=== PATIENT | female | born 1940 | race Two or more races ===

== ENCOUNTER 2016-11-13 00:37 | Inpatient (IN) | payer MEDICARE, OTHER ==
[~2016-11-13] VITALS: Ht 162.6 cm; Wt 53.5 kg
--- NOTE | 2016-11-13 01:00 | NUR ---
Patient walked into ER c/o abdominal pain x1 week. Patient was seen at [facility] ER for similar symptoms x2 this month. Here for symptoms not resolving
[2016-11-13] MEDS ORDERED: PARO20TA51 PO (01:06)
[2016-11-13] MEDS ORDERED: ASPI81TA31 PO (01:13)
[2016-11-13] MEDS ORDERED: CARV6.252 PO (01:13)
[2016-11-13] MEDS ORDERED: [UNRECOGNIZED DRUG - CODE] PO (01:15)
[2016-11-13] MEDS ORDERED: CHOL200016 PO (01:17)
[2016-11-13] MEDS ORDERED: IV NORMAL SALINE 1000 ML BAG IV ONE (01:45)
[2016-11-13 01:50] LABS: *BILIRUBIN,URIN NEGATIVE (NEGATIVE); *BLOOD, URINE 2+ (NEGATIVE); *CLARITY,URINE SLIGHTLY CLOUDY (CLEAR); *COLOR,URINE YELLOW (YELLOW); *KETONES,URINE NEGATIVE (NEGATIVE); *PROTEIN,URINE NEGATIVE (NEGATIVE); *UROBILINOGEN,URINE 0.2 E.U./dl (NORMAL); LEUKOCYTE ESTERASE ,URINE TRACE (NEGATIVE); NITRITE, URINE NEGATIVE (NEGATIVE); PH,URINE 5.5 (5.0-8.0); UGLUCOSE NEGATIVE (NEGATIVE)
[2016-11-13] MEDS ORDERED: BIOT5000 PO (01:56)
[2016-11-13 01:57] LABS: BASOPHILS % (AUTO) 0.6 % (0.0-2.0); EOSINOPHILS # (AUTO) 0.1 K/uL (0.0-0.7); EOSINOPHILS % (AUTO) 2.8 % (0.0-7.0); HEMATOCRIT 37.6 % (37-47); HEMOGLOBIN 12.7 G/DL (12.0-16.0); LYMPHOCYTES % (AUTO) 23.8 % (20.5-51.5); MEAN CORPUSCULAR HEMOGLOBIN 33.4 UUG (27.0-31.0); MEAN CORPUSCULAR HGB CONC 34 g/dL (32.0-37.0); MEAN CORPUSCULAR VOLUME 98.8 FL (81.0-99.0); MONOCYTES # (AUTO) 0.3 K/UL (0.1-1.30); MONOCYTES % (AUTO) 7.3 % (0.0-11.0); NEUTROPHILS % (AUTO) 65.5 % (38.5-71.5); PLATELET COUNT (AUTO) 153 K/UL (150-450); RED CELL DISTRIBUTION WIDTH 12.3 % (11.5-14.5); WHITE BLOOD COUNT (AUTO) 4.4 K/UL (4.0-11.2)
[2016-11-13 01:58] LABS: BACTERIA,URINE FEW /HPF (NONE SEEN); RBC,URINE 0-3 /HPF (0-3); SQUAMOUS EPITHELIAL CELL,UR FEW /HPF (NONE SEEN); URIC ACID CRYSTALS,URINE FEW /HPF (NONE SEEN)
[2016-11-13] MEDS ORDERED: ONDANSETRON IV *ER 4 MG/2 ML VIAL IV ONE (02:00)
[2016-11-13] MEDS ORDERED: MORPHINE SULFATE 4 MG/1 ML DISP.SYRIN IV ONE (02:00)
[2016-11-13] MEDS ORDERED: FERR-58 PO (02:04)
[2016-11-13] MEDS ORDERED: FERR325T6 PO (02:04)
[2016-11-13 02:06] LABS: ALBUMIN 3.6 g/dL (3.4-5.0); BILIRUBIN,TOTAL 0.5 mg/dL (0.2-1.0); CALCIUM 8.8 mg/dL (8.5-10.1); CREATININE 0.8 mg/dL (0.6-1.3); POTASSIUM 4.1 mmol/L (3.5-5.1); TOTAL PROTEIN, SERUM 7.3 g/dL (6.4-8.2)
[2016-11-13 02:09] LABS: BILIRUBIN,DIRECT 0.1 mg/dL (0.0-0.2)
[2016-11-13] MEDS ORDERED: MORPHINE SULFATE 4 MG/1 ML DISP.SYRIN ONE (02:10)
[2016-11-13] MEDS ORDERED: ONDANSETRON 4 MG/2 ML VIAL ONE (02:10)
--- NOTE | 2016-11-13 04:05 | NUR ---
Received patient from ER via [facility]. Patient is alert, oriented x 4, ambulatory, in no acute distress. Dx: Abdominal Pain. New admission information done, belonging list done and care plan initiated, notified MD for admission orders. Call light within reach, bed in low position. Will continue to monitor.
--- NOTE | 2016-11-13 04:05 | NUR ---
Transfered to 2nd floor Med Surg
[2016-11-13 04:15] VITALS: BP 141/76
[2016-11-13] MEDS ORDERED: HYDROCODONE/APAP 10-325 MG TABLET PO PRN (05:30)
[2016-11-13] MEDS ORDERED: ZOLPIDEM 5 MG TABLET PO PRN (05:30)
[2016-11-13] MEDS ORDERED: ENOXAPARIN SODIUM 40 MG/0.4 ML DISP.SYRIN SQ SCH (05:30)
[2016-11-13] MEDS ORDERED: ONDANSETRON 4 MG/2 ML VIAL IV PRN (05:30)
[2016-11-13] MEDS ORDERED: MAGNESIUM HYDROXIDE 30 ML LIQUID UDC PO PRN (05:30)
[2016-11-13] MEDS ORDERED: MORPHINE SULFATE 2 MG/1 ML DISP.SYRIN IV PRN (05:30)
[2016-11-13] MEDS ORDERED: ACETAMINOPHEN 325 MG TABLET PO PRN (05:30)
[2016-11-13] MEDS ORDERED: Z GUARD REMEDY PASTE 57 GM TUBE TOP PRN (05:30)
[2016-11-13] MEDS: IV NS 1000 ML 1,000 ML IV PRN ×2 (05:53→19:12)
[2016-11-13] MEDS: PANTOPRAZOLE SODIUM 40 MG TABLET.DR PO SCH (07:00)
--- NOTE | 2016-11-13 07:10 | NUR ---
PATIENT RECEIVED IN ROOM RESTING ALERT, AWAKE AND ORIENTED IN NO ACUTE DISTRESS. STATED ABD PAIN IS TOLERABLE AT THIS TIME. RESPIRATIONS EVEN AND UNLABORED. IVF RUNNING. FALL PRECAUTIONS IN PLACE.
[2016-11-13] MEDS: ASPIRIN 81 MG TAB.CHEW PO SCH (08:24)
[2016-11-13] MEDS: PAROXETINE HCL 20 MG TABLET PO SCH (08:25)
[2016-11-13] MEDS: CARVEDILOL 6.25 MG TABLET PO SCH ×2 (08:28→17:41)
[2016-11-13] MEDS: HYDROCODONE/APAP 5-325MG TABLET PO PRN ×2 (08:45→22:26)
--- NOTE | 2016-11-13 10:56 | NUR ---
PATIENT PARTICIPATED WITH PT. PATIENT C/O DIZZINESS WHEN OUT OF BED, UPON ASSESSMENT PATIENT'S BP NOTICED TO BE LOW WHEN UP. TEACHING DONE TO CALL FOR ASSISTANCE WHEN OUT OF BED AND PATIENT VOICED UNDERSTANDING. DR. ESPINOZA NOTIFIED.
[2016-11-13 11:00] VITALS: BP_SYST 119; BP_SYST 75; BP_SYST 98; BP_DIAS 47; BP_DIAS 48; BP_DIAS 54
[2016-11-13 11:06] VITALS: BP 117/61
[2016-11-13] MEDS: FERROUS SULFATE 325 MG TABEC PO SCH (12:16)
[2016-11-13] MEDS ORDERED: SULF1TAB48 PO (12:18)
[2016-11-13 15:21] VITALS: BP 106/62
[2016-11-13 15:35] LABS: *SODIUM RNDM,URINE 67 mmol/L (40-220)
--- NOTE | 2016-11-13 18:12 | NUR ---
END OF SHIFT NOTES. PT IS A/OX3. NO ACUTE DISTRESS THROUGHOUT SHIFT. PT STATES NO ABDOMINAL PAIN AT THIS TIME. V/S STABLE. MILK MAGNESIA GIVEN. PT STATES HAD A SMALL BOWEL MOVEMENT. IV FLUIDS RUNNING NS @75ML/HR. BRP. NEEDS MET BY STAFF.
[2016-11-13 19:00] VITALS: BP 128/60
--- NOTE | 2016-11-13 19:15 | NUR ---
ALERT ORIENTED, ABLE TO MAKE NEEDS KNOWN, NO SOB NO CHEST PAIN NOTED, PATIENT HAS BOWEL MOVEMENT 2X, CONT TO MONITOR.
[2016-11-13] MEDS: SULFAMETH/TRIMETH 800/160 MG TABLET PO SCH (21:15)
[2016-11-13] MEDS ORDERED: MIRALAX 17 GM POWD.PACK PO ONE (21:15)
[2016-11-13] MEDS ORDERED: MIRALAX 17 GM POWD.PACK ONE (22:26)
[2016-11-13] MEDS ORDERED: SULFAMETH/TRIMETH 800/160 MG TABLET ONE (22:27)
[2016-11-14 05:00] VITALS: BP 140/78
--- NOTE | 2016-11-14 05:20 | NUR ---
PATIENT SLEPT MOST OF THE NIGHT, NO SOB NO CHEST PAIN NOTED, NO BM YET, CONT TO MONITOR.
[2016-11-14] MEDS: PANTOPRAZOLE SODIUM 40 MG TABLET.DR PO SCH (05:58)
[2016-11-14 06:52] LABS: MAGNESIUM 2.1 mg/dL (1.8-2.4); PHOSPHOROUS 3.3 mg/dL (2.5-4.9); POTASSIUM 3.7 mmol/L (3.5-5.1); URIC ACID 4.2 mg/dL (2.6-6.0)
[2016-11-14 06:56] LABS: THYROID STIMULATING HORMONE 1.756 mIU/mL (0.358-3.740)
[2016-11-14 06:58] LABS: BASOPHILS % (AUTO) 0.6 % (0.0-2.0); EOSINOPHILS # (AUTO) 0.2 K/uL (0.0-0.7); EOSINOPHILS % (AUTO) 5.7 % (0.0-7.0); HEMATOCRIT 34.2 % (37-47); HEMOGLOBIN 11.9 G/DL (12.0-16.0); LYMPHOCYTES # (AUTO) 0.9 K/UL (0.8-4.8); LYMPHOCYTES % (AUTO) 30.2 % (20.5-51.5); MEAN CORPUSCULAR HEMOGLOBIN 34.8 UUG (27.0-31.0); MEAN CORPUSCULAR HGB CONC 35 g/dL (32.0-37.0); MONOCYTES # (AUTO) 0.3 K/UL (0.1-1.30); MONOCYTES % (AUTO) 9.3 % (0.0-11.0); NEUTROPHILS # (AUTO) 1.7 K/UL (1.8-8.9); NEUTROPHILS % (AUTO) 54.2 % (38.5-71.5); PLATELET COUNT (AUTO) 153 K/UL (150-450); RED BLOOD CELL COUNT(AUTO) 3.42 MIL/UL (4.2-5.4); RED CELL DISTRIBUTION WIDTH 12.3 % (11.5-14.5); WHITE BLOOD COUNT (AUTO) 3.1 K/UL (4.0-11.2)
[2016-11-14 07:04] LABS: CALCIUM 8.3 mg/dL (8.5-10.1); CREATININE 0.9 mg/dL (0.6-1.3)
[2016-11-14] MEDS: IV NS 1000 ML 1,000 ML IV PRN ×2 (08:02→21:35)
[2016-11-14] MEDS: ASPIRIN 81 MG TAB.CHEW PO SCH (08:03)
[2016-11-14] MEDS: PAROXETINE HCL 20 MG TABLET PO SCH (08:04)
[2016-11-14] MEDS: CARVEDILOL 6.25 MG TABLET PO SCH ×2 (08:06→17:11)
[2016-11-14] MEDS: ENOXAPARIN SODIUM 40 MG/0.4 ML DISP.SYRIN SQ SCH (08:08)
--- NOTE | 2016-11-14 08:58 | NUR ---
PT AWAKE IN BED, PAIN 3/10 IN ABDOMEN RADIATING TO BACK. NO SOB ALL SAFETY AND COMFORT MEASURES ATTENDED TO, CALL LIGHT IN REACH
[2016-11-14] MEDS: SULFAMETH/TRIMETH 800/160 MG TABLET PO SCH ×2 (09:23→21:23)
[2016-11-14] MEDS: HYDROCODONE/APAP 5-325MG TABLET PO PRN ×2 (09:29→21:35)
[2016-11-14] MEDS ORDERED: MAGNESIUM HYDROXIDE 30 ML LIQUID UDC PO PRN (10:00)
[2016-11-14] MEDS ORDERED: POTASSIUM CHLORIDE 20 MEQ TAB.PRT.SR PO ONE (10:15)
--- NOTE | 2016-11-14 10:30 | NUR ---
PT WALKING WITH PT, NO EPISODE OF ORTHOSTATIC HYPOTENSION
[2016-11-14] MEDS: FERROUS SULFATE 325 MG TABEC PO SCH (10:36)
[2016-11-14 11:46] VITALS: BP 112/56
[2016-11-14 15:46] VITALS: BP 131/71
[2016-11-14 20:00] VITALS: BP 115/59
--- NOTE | 2016-11-14 20:00 | NUR ---
PT IN BED AWAKE AND ORIENTED, WATCHING TV, NO ACUTE DISTRESS NOTED. NO C/O PAIN AT THIS TIME. IV INTACT AND PATENT, IVF INFUSING ORDERED. NO S/S OF RESPIRATORY DISTRESS OBSERVED/REPORTED, PT ON ROOM AIR. CALL LIGHT WITHIN REACH. SAFETY MEASURES IN PLACE.
[2016-11-14] MEDS: ATORVASTATIN 10 MG TABLET PO SCH (21:23)
--- NOTE | 2016-11-14 21:35 | NUR ---
PT C/O OF ABDOMINAL PAIN 4/10 AND CONSTIPATION, REQUESTING MED, PRN NORCO 5/325MG AND MILK OF MAG GIVEN PRESCRIBED. WILL REASSESS. WILL CONTINUE TO MONITOR.
[2016-11-15 04:00] VITALS: BP 119/61
[2016-11-15] MEDS: PANTOPRAZOLE SODIUM 40 MG TABLET.DR PO SCH (06:16)
--- NOTE | 2016-11-15 06:21 | NUR ---
END OF SHIFT NOTE: PT IN BED RESTING, IN NO APPARENT DISTRESS. SLEPT WELL PER SHIFT. REPORTS ABDOMINAL PAIN OF 3/10 AT THIS TIME, TOLERABLE PER PT'S REPORT, NO PAIN MED REQUESTED AT THIS TIME. PT WITH SMALL BM, MED EFFECTIVE. BRP. CONTINUES ON IVF, TOLERATING WELL. VS STABLE. ALL NEEDS MET. CALL LIGHT IN REACH SAFETY MAINTAINED. CONTINUE CARE PLANNED.
[2016-11-15] MEDS: PAROXETINE HCL 20 MG TABLET PO SCH (08:10)
[2016-11-15] MEDS: ASPIRIN 81 MG TAB.CHEW PO SCH (08:10)
[2016-11-15] MEDS: CARVEDILOL 6.25 MG TABLET PO SCH ×2 (08:10→17:18)
[2016-11-15] MEDS: SULFAMETH/TRIMETH 800/160 MG TABLET PO SCH ×2 (08:10→20:13)
[2016-11-15] MEDS: ENOXAPARIN SODIUM 40 MG/0.4 ML DISP.SYRIN SQ SCH (08:11)
--- NOTE | 2016-11-15 08:50 | NUR ---
PT AWAKE, SITTING IN CHAIR, 3/10 PAIN IN ABDOMEN, DOES NOT WANT PAIN MEDICATIONS AT THIS TIME, STATES IT IS TOLERABLE. PT ABLE TO WALK TO AND FROM BATHROOM WITH NO DIZZINESS, PT REFUSED LOVENOX AND EXPLAINED TO PT THAT IT IS VERY IMPORTANT TO WALK THE HALLWAYS TODAY. RN WILL ASSIST. IV INTACT AND PATENT, ALL SAFETY AND COMFORT MEASURES ATTENDED TO, CALL LIGHT IN REACH, WILL CONTINUE TO MONITOR
[2016-11-15] MEDS: FERROUS SULFATE 325 MG TABEC PO SCH (10:43)
[2016-11-15] MEDS: IV NS 1000 ML 1,000 ML IV PRN ×2 (10:44→22:53)
[2016-11-15 11:11] VITALS: BP 132/62
--- NOTE | 2016-11-15 14:40 | NUR ---
PT STATING PAIN 6/10 IN ABDOMEN BUT DOES NOT WANT NORCO AT THIS TIME, OFFERED PT TO TRY TYLENOL AND IF PAIN DOES NOT SUBSIDE TO TRY NORCO, PT AGREED. OFFERED WARM PACK WELL. WILL CONTINUE TO MONITOR
[2016-11-15 15:29] VITALS: BP 127/57
--- NOTE | 2016-11-15 16:16 | NUR ---
The patient's discharge plan is to go to [facility] [ ; [id number] [place] [address]] once medically cleared. She is aware and in agreement with the plan. Her son-in-law, Pawel [ ], is in agreement with her discharge as well.
[2016-11-15 20:00] VITALS: BP 129/73
[2016-11-15] MEDS: ATORVASTATIN 10 MG TABLET PO SCH (20:13)
[2016-11-15] MEDS: HYDROCODONE/APAP 5-325MG TABLET PO PRN (21:16)
[2016-11-16 05:00] VITALS: BP 136/78
[2016-11-16] MEDS: PANTOPRAZOLE SODIUM 40 MG TABLET.DR PO SCH (06:13)
--- NOTE | 2016-11-16 06:41 | NUR ---
PT IN BED RESTING, SLEPT INTERMITTENTLY DURING SHIFT, WAS GIVEN NORCO 5/325MG FOR C/O HEADACHE AND ABDOMINAL PAIN 01/13, AND WITH RELIEF. PT IS AMBULATORY TO THE BATHROOM. IVF STILL INFUSING. CALL LIGHT WITHIN REACH.
--- NOTE | 2016-11-16 07:51 | NUR ---
RECEIVED PATIENT IN BED AWAKE ALERT AND ORIENTED SHE STATED THAT HER RIGHT LOWER QUADRANT PAIN IS STILL PRESENT BUT REFUSES TO TAKE PAIN MEDICATION AT THIS TIME.REMAIN ON IVF ORDERED WITH NO S/S OF INFILTERATION ON SITE.MADE COMFORTABLE AND WILL OBSERVE.
[2016-11-16] MEDS: SULFAMETH/TRIMETH 800/160 MG TABLET PO SCH (08:11)
[2016-11-16] MEDS: CARVEDILOL 6.25 MG TABLET PO SCH (08:11)
[2016-11-16] MEDS: ASPIRIN 81 MG TAB.CHEW PO SCH (08:11)
[2016-11-16] MEDS: PAROXETINE HCL 20 MG TABLET PO SCH (08:11)
[2016-11-16] MEDS: ENOXAPARIN SODIUM 40 MG/0.4 ML DISP.SYRIN SQ SCH (08:15)
[2016-11-16] MEDS ORDERED: ATOR10TA PO (10:43)
[2016-11-16] MEDS ORDERED: FERR325T28 PO (10:43)
[2016-11-16] MEDS ORDERED: PANT40TA2 PO (10:43)
[2016-11-16] MEDS ORDERED: Acetaminophen PO (10:43)
[2016-11-16] MEDS ORDERED: MULT-1045 PO (10:43)
[2016-11-16] MEDS ORDERED: HYDR-3326 PO (10:43)
[2016-11-16] MEDS ORDERED: ACID1TAB4 PO (10:43)
[2016-11-16] MEDS ORDERED: SULF1TAB3 PO (10:43)
[2016-11-16] MEDS ORDERED: Zolpidem Tartrate PO (10:43)
[2016-11-16] MEDS ORDERED: MAGN400O4 PO (10:43)
--- NOTE | 2016-11-16 10:57 | NUR ---
NEW ORDER RECEIVED TO DISCHARGE PATIENT TO [facility] TODAY.[facility] WAS CALLED BY THE FUNCTIONAL MANAGER AND THEY STATED WILL CONFIRM WITH THE DIRECTOR OF NURSES IF THEY WILL ACCEPT PATIENT AND WILL CALL US BACK.
[2016-11-16] MEDS: FERROUS SULFATE 325 MG TABEC PO SCH (11:04)
[2016-11-16 11:34] VITALS: BP 140/86
--- NOTE | 2016-11-16 12:05 | NUR ---
CALLED [facility] AGAIN AND REPORT GIVEN TO LATISHA ARANGO FOR CONTINUED CARE.CALLED [facility] AND PATIENT WILL BE PICKED UP ABOUT 1245 PATIENT AWARE AND SIGNED HER DISCHARGE INSTRUCTIONS.HEPLOCK REMOVED AT THIS TIME.
--- NOTE | 2016-11-16 13:30 | NUR ---
PATIENT DISCHARGED PICKED UP BY [facility] IN SATISFACTORY CONDITION WITH DISCHARGE INSTRUCTIONS WITH ALL HER PERSONAL BELONGINGS.
== END 2016-11-16 13:30 | DRG 394 ==
LOC: ER 00:50 → MED 03:48
DX: K66.0 Peritoneal adhesions (postprocedural) (postinfection) (principal); E22.2 Syndrome of inappropriate secretion of antidiuretic hormone; N39.0 Urinary tract infection, site not specified; K56.41 Fecal impaction; E78.5 Hyperlipidemia, unspecified; D50.9 Iron deficiency anemia, unspecified; E53.8 Deficiency of other specified B group vitamins; I48.91 Unspecified atrial fibrillation; Z79.899 Other long term (current) drug therapy; Z85.118 Personal history of other malignant neoplasm of bronchus and lung; Z95.0 Presence of cardiac pacemaker; I11.9 Hypertensive heart disease without heart failure; D75.89 Other specified diseases of blood and blood-forming organs; R53.1 Weakness; R73.9 Hyperglycemia, unspecified; Z92.21 Personal history of antineoplastic chemotherapy; Z92.3 Personal history of irradiation; Z90.49 Acquired absence of other specified parts of digestive tract
CPT/HCPCS: 36415; 71010; 83690; 83735; 84100; 84300; 84443; 84550; 85025; 93005; 97001; 97116; 97530; A4663; J1650; J2270; J2405; J7030